=== PATIENT | male | born 1960 | race Caucasian/White ===

== ENCOUNTER → 2016-08-16 | Outpatient (CLI) | payer MEDICARE, OTHER ==
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
== END | disposition home or self-care (01) ==
LOC: RADMRIMAIN 15:55
PROVIDERS: ATTEND Neurological Surgery
DX: M50.30 Other cervical disc degeneration, unspecified cervical region (principal)
CPT/HCPCS: 72141

== ENCOUNTER → 2018-07-11 | Outpatient (CLI) | payer MEDICARE ==
--- NOTE | 2018-07-12 01:18 | MR ---
EXAMINATION TYPE: MR cervical spine wo con DATE OF EXAM: 07/11/2018 COMPARISON: 06/07/2017 HISTORY: Spinal stenosis-cervical region, Neck pain TECHNIQUE: Multiplanar, multisequence images of the cervical spine were acquired. Exam is limited due to motion. Patient could not hold still. As best as one can tell there is degener ative disc space narrowing throughout the cervical spine and more noticeable from C4 to T1. Spinal ca nal appears to be narrowed to 7 mm at C5-6 with spurring of the endplates and facet arthropathy. The brainstem is intact. Skull base appears intact. I see no cervical spine fracture. I see no definite e indira in the cervical spinal cord. There is no focal bone destruction. The posterior elements are inta ct. There is no cervical paraspinal mass. IMPRESSION: Multilevel spondylotic changes. 7 mm spinal stenosis at C5-6 unchanged compared to last exam. No cerv ical cord edema. Limited exam.
== END | disposition home or self-care (01) ==
LOC: RADMRIMAIN 21:38
PROVIDERS: ATTEND Neurological Surgery
DX: M48.02 Spinal stenosis, cervical region (principal); M47.812 Spondylosis without myelopathy or radiculopathy, cervical region
CPT/HCPCS: 72141

== ENCOUNTER → 2022-05-08 | Outpatient (CLI) | payer MEDICARE, OTHER ==
--- NOTE | 2022-05-08 22:32 | MR ---
EXAMINATION TYPE: MR shoulder RT wo con DATE OF EXAM: 05/08/2022 COMPARISON: None. HISTORY: Right shoulder pain, decreased ROM for 5 weeks.. TECHNIQUE: Multiplanar, multisequence imaging of the right shoulder is performed without contrast. FINDINGS: Rotator Cuff: Increased signal supraspinatus tendon with surrounding fluid most prominent involving t he posterior one half fibers near the humeral head. Spinatus tendon is intact with some focal increas ed signal at the humeral head articulation. Subscapularis tendon shows increased signal and thickenin g. Rotator cuff muscle bulk is preserved. Acromioclavicular Joint: Moderate to severe spurring and capsular hypertrophy along with narrowing wi th mass effect along the supraspinatus muscle near myotendinous junction coronal image 13 for referen ce. Glenohumeral Joint: Moderate to large size joint effusion. Small to moderate size inferior medial spu r from the humeral head. At least moderate glenohumeral joint narrowing is thought present. Synovial thickening is seen. Labrum: The labrum appears grossly intact given limitation of non-arthrogram study. Biceps Tendon: The long head of biceps is in normal location within bicipital groove. Bone marrow signal: Subchondral cystic changes superolateral humeral head is felt present. Additional lesion anterior medial humerus favors a nonaggressive etiology such as subchondral cyst. Other: No additional significant abnormality is appreciated. IMPRESSION: 1. Moderate to severe degenerative changes as detailed above. MRI Evidence of underlying impingement at the acromioclavicular joint. Correlate clinically. 2. Tendinopathy of the supraspinatus tendon and subscapularis tendon and to lesser degree the infrasp inatus tendons.
== END | disposition home or self-care (01) ==
LOC: RADMRIMAIN 21:15
PROVIDERS: ATTEND Physical Medicine & Rehabilitation
DX: M19.011 Primary osteoarthritis, right shoulder (principal); M67.813 Other specified disorders of tendon, right shoulder; M75.41 Impingement syndrome of right shoulder

== ENCOUNTER → 2023-08-01 | Outpatient (CLI) | payer MEDICARE ==
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
== END | disposition home or self-care (01) ==
LOC: RADMRIMAIN 21:07
PROVIDERS: ATTEND Physical Medicine & Rehabilitation
DX: M50.322 Other cervical disc degeneration at C5-C6 level (principal); M48.02 Spinal stenosis, cervical region; M79.601 Pain in right arm
CPT/HCPCS: 72141

== ENCOUNTER → 2023-12-14 | Outpatient (CLI) | payer MEDICARE ==
--- NOTE | 2023-12-18 14:00 | MR ---
EXAMINATION TYPE: MR lumbar spine wo con DATE OF EXAM: 12/14/2023 COMPARISON: HISTORY: Low back pain into left side, Hx back fusion TECHNIQUE: Multiplanar, multisequence images of the lumbar spine were acquired without IV contrast. L1-L2: Moderate disc desiccation with posterior disc bulge. Mild effacement of ventral thecal sac. No evidence for central stenosis or patrice disc herniation. Bilateral lateral recess stenosis noted. Mod erate bilateral foraminal encroachment. No canal stenosis is present. Foramina are patent bilaterall y. L2-L3: Moderate disc desiccation with circumferential disc bulges posteriorly. Effacement ventral the david sac with mild central stenosis present. Bilateral neural foraminal encroachment. L3-L4: Severe disc desiccation with posterior disc bulge. Hypertrophy of ligamentum flavum and facet joint arthropathy resulting in severe central stenosis. Moderate bilateral foraminal encroachment. L4-L5: Postoperative changes of lumbar laminectomy and fusion. Intervertebral spacer is in place. Ped icular screws noted. No change in alignment since 02/06/2014. Alignment appears near-anatomic. No recu rrent process seen. L5-S1: Postoperative changes of lumbar laminectomy and fusion. Intervertebral spacer is in place. Ped icular screws noted. No change in alignment since 02/06/2014. Alignment appears near-anatomic. No recu rrent process seen. Lumbar segments are intact. No paraspinal masses are identified. Conus medullaris has a normal appe arance. IMPRESSION: 1. Multilevel degenerative disc disease with multilevel central stenosis as outlined above. 2. Stable postoperative appearance at L4-5 and L5-S1.
== END | disposition home or self-care (01) ==
LOC: RADMRIMAIN 17:53
PROVIDERS: ATTEND Neurological Surgery
DX: M51.36 Other intervertebral disc degeneration, lumbar region (principal); M48.061 Spinal stenosis, lumbar region without neurogenic claudication; T81.89XA Other complications of procedures, not elsewhere classified, initial encounter
CPT/HCPCS: 72148